=== PATIENT | female | born 2000 | race African-American/Black ===

== ENCOUNTER 2025-06-14 12:03 | Emergency (ER) | payer OTHER ==
[~2025-06-14] VITALS: Ht 172.7 cm; Wt 62.9 kg
[2025-06-14 14:15] VITALS: BP 116/56; TEMP 97.7; O2SAT 100
[2025-06-14] MEDS: KETOROLAC 60 MG/2 ML VIAL IM ONE (15:56)
== END 2025-06-14 16:05 | disposition home or self-care (01) ==
LOC: EDBD 12:03 → M ED 12:03
DX: T22.211A Burn of second degree of right forearm, initial encounter (principal); T31.0 Burns involving less than 10% of body surface; Y27.9XXA Contact with unspecified hot objects, undetermined intent, initial encounter; Y93.G3 Activity, cooking and baking; Y99.0 Civilian activity done for income or pay
CPT/HCPCS: 16000; 96372; 99284; J1885

== ENCOUNTER 2025-06-20 11:57 | Emergency (ER) | payer OTHER ==
[~2025-06-20] VITALS: Ht 167.6 cm; Wt 64.0 kg
[2025-06-20] MEDS ORDERED: IBUP600T42 PO (12:56)
[2025-06-20] MEDS ORDERED: HYDR-3713 PO (12:56)
[2025-06-20 13:26] VITALS: BP 111/66; TEMP 97.7; O2SAT 100
== END 2025-06-20 13:27 | disposition home or self-care (01) ==
LOC: M ED 11:57
DX: T22.211D Burn of second degree of right forearm, subsequent encounter (principal); M79.631 Pain in right forearm; X15.3XXA Contact with hot saucepan or skillet, initial encounter; Y92.89 Other specified places as the place of occurrence of the external cause; Y93.89 Activity, other specified; Y99.0 Civilian activity done for income or pay; Z79.1 Long term (current) use of non-steroidal anti-inflammatories (NSAID)